=== PATIENT | female | born 1960 | race Caucasian/White ===

== ENCOUNTER 2022-08-05 13:56 | Outpatient (CLI) | payer OTHER, SELFPAY ==
--- NOTE | ~2022-08-05 | CT_ITS ---
EXAMINATION: CT abdomen pelvis wo con DATE: 08/05/2022 14:12 INDICATION: Low abdominal pain. TECHNIQUE: Computed tomography (CT) of the abdomen and pelvis was performed without intravenous contr ast. Automated exposure control and iterative reconstruction technique were employed. The dose-length product was 868.10 mGy-cm. COMPARISON: None. FINDINGS: The visualized portions of the lung bases demonstrate minimal atelectasis. A calcified righ t lung nodule is consistent with old granulomatous disease. There is a 3 mm nodule in right middle lo be, likely benign. No pleural effusion. The heart size is normal. There is subendocardial fat in left ventricular apex and apical anterior and apical septal segments, consistent with old infarct. No per icardial effusion. There is diffuse hepatic steatosis. There is a small sliding hiatal hernia. The ga llbladder, spleen, pancreas, adrenal glands, and right kidney are normal. There are 3 stones in left kidney measuring up to 3 mm. There are bilateral tube ligation clips. There are scattered diverticula in the colon. There is fat stranding around a diverticulum of the sigmoid colon with local bowel wal l thickening, consistent with diverticulitis. There are no dilated loops of bowel. The appendix is no t visualized. There are no pathologically enlarged lymph nodes. There is mild lumbar spondylosis. The re is a hemangioma in L2 vertebral body. IMPRESSION: 1. Acute sigmoid diverticulitis. No perforation or abscess. 2. 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 Reviewed, dictated and finalized at location A.
== END 2022-08-05 13:57 | disposition home or self-care (01) ==
LOC: ANHIMG 14:00
PROVIDERS: Visit Provider Nurse Practitioner
DX: R10.30 Lower abdominal pain, unspecified (principal); K57.90 Diverticulosis of intestine, part unspecified, without perforation or abscess without bleeding
CPT/HCPCS: 74176